=== PATIENT | male | born 1985 | race Caucasian/White ===

== ENCOUNTER 2025-01-28 08:51 | Emergency (ER) | payer OTHER ==
[~2025-01-28] VITALS: Ht 177.8 cm; Wt 68.0 kg
[2025-01-28] MEDS ORDERED: Methyl Salicylate/Menth/Camph 57 GM TUBE EXT ONE (09:05)
[2025-01-28] MEDS ORDERED: Ketorolac Tromethamine 30mg Vial IV ONE (09:05)
[2025-01-28] MEDS ORDERED: HYDROmorphone HCl/Pf 1MG SYR IV ONE (11:25)
[2025-01-28] MEDS ORDERED: TIZA4 PO (11:56)
[2025-01-28] MEDS ORDERED: LIDO700A20 TOP (11:56)
== END 2025-01-28 13:11 | disposition home or self-care (01) ==
LOC: ER 08:51
DX: M62.830 Muscle spasm of back (principal)
CPT/HCPCS: 72128; 96374; 96375; 99284-25; A9270; J1171; J1885